=== PATIENT | female | born 1940 | race Caucasian/White ===

== ENCOUNTER → 2017-09-06 | Outpatient (REF) | payer MEDICARE, MEDICAID ==
[2017-05-16 10:23] VITALS: BMI 23.0
[~2017-09-06] MED LIST: ACET-2043 PO; ATOR-1 PO; ATOR40TA24 PO; ATOR40TA69 PO; CALC-515 PO; DOCU-202 PO; DONE10TA38 PO; DONE10TA45 PO; DONE10TA89 PO; DONE23TA PO; DONE5TAB29 PO; FLU45SYR25 IM ONLY; LEVO175T42 PO; LEVO25TA61 PO; LEVO50TA86 PO; LEVO88TA45 PO; LOR5/325 PO; MIRT-22 PO; NITR-105 PO; ONDA4TAB PO; OXYB10TA16 PO; OXYB5TAB80 PO; OXYB5TAB86 PO; PANT20TA27 PO; PANT40SU3 PO; PNEU0.5D3 IM; POLY17PO21 PO; SULF-198 PO; TOLT2CAP; VENL150C61 PO; VENL150T10 PO; VENL75TA12 PO
== END ==
LOC: ZZLCC 16:14
PROVIDERS: ATTEND Family Medicine
DX: E86.0 Dehydration (principal)
CPT/HCPCS: 82310; 82374; 82435; 82565; 82947; 84132; 84295; 84520; 85027

== ENCOUNTER → 2017-10-25 | Outpatient (REF) | payer MEDICARE, MEDICAID ==
[2017-05-16 10:23] VITALS: BMI 23.0
== END ==
LOC: ZZLCC 17:33
PROVIDERS: ATTEND Family Medicine
DX: E03.9 Hypothyroidism, unspecified (principal); E78.5 Hyperlipidemia, unspecified
CPT/HCPCS: 82465; 83718; 84443; 84478

== ENCOUNTER → 2018-04-24 | Outpatient (REF) | payer MEDICARE, MEDICAID ==
[2017-05-16 10:23] VITALS: BMI 23.0
[~2018-04-24] MED LIST changes: +ATOR10TA65 PO; -TOLT2CAP; +TOLT2CAP22; +VENL37.53 PO
[2018-04-24 16:38] LABS: PLATELET COUNT, AUTOMATED 234 K/uL (150-450)
== END ==
LOC: ZZLCC 16:26
PROVIDERS: ATTEND Family Medicine
DX: E03.9 Hypothyroidism, unspecified (principal)
CPT/HCPCS: 82040; 82247; 82310; 82374; 82435; 82565; 82947; 84075; 84132; 84155; 84295; 84443; 84450; 84460; 84520; 85025

== ENCOUNTER → 2018-11-19 | Outpatient (CLI) | payer MEDICARE, MEDICAID ==
[2017-05-16 10:23] VITALS: BMI 23.0
[~2018-11-19] MED LIST changes: +CHOL100052 PO; +DEXT30SU27 PO; +DICL100G39 TOP; +FLUT16SP19 NS; +MOM PO; +POLY17PO11 PO; -POLY17PO21 PO; +VENL75CA4 PO
== END ==
LOC: LAB 15:26
PROVIDERS: ATTEND Family Medicine
DX: E03.9 Hypothyroidism, unspecified (principal); I10 Essential (primary) hypertension
CPT/HCPCS: 82310; 82374; 82435; 82565; 82947; 84132; 84295; 84443; 84520

== ENCOUNTER → 2018-12-01 | Outpatient (REF) | payer MEDICARE, MEDICAID ==
[2017-05-16 10:23] VITALS: BMI 23.0
== END ==
LOC: ZZLCC 13:19
PROVIDERS: ATTEND Family Medicine
DX: Z02.9 Encounter for administrative examinations, unspecified (principal)
CPT/HCPCS: 81001

== ENCOUNTER → 2018-12-04 | Outpatient (REF) | payer MEDICARE, MEDICAID ==
[2017-05-16 10:23] VITALS: BMI 23.0
== END ==
LOC: ZZLCC 12:31
PROVIDERS: ATTEND Family Medicine
DX: R30.0 Dysuria (principal); R82.90 Unspecified abnormal findings in urine; B96.20 Unspecified Escherichia coli [E. coli] as the cause of diseases classified elsewhere
CPT/HCPCS: 81001; 87077; 87088; 87186

== ENCOUNTER 2019-01-29 14:19 | Emergency (ER) | payer MEDICARE, MEDICAID ==
[2017-05-16 10:23] VITALS: Wt 54.4 kg
--- NOTE | 2019-01-29 14:27 | ER Report ---
History and Physical Time Seen By MD: 14:27 Hx. of Stated Complaint: Unresponsive HPI/ROS CHIEF COMPLAINT: Unresponsive HISTORY OF PRESENT ILLNESS: 79 year old female presents to ED via EMS. She lives at [facility] and staff found her unresponsive. The last time someone was in her room and saw her awake was around 0800 this morning. EMS reported she was unresponsive to painful stimuli at the [facility], but her vitals and blood glucose were stable. Upon arrival to the ED patient was responsive to her name. Alert to person, but not place or time. Denies headache, chest pain, difficulty breathing. REVIEW OF SYSTEMS: HENT: No headache, no dizziness, no blurry vision. Respiratory: No cough, no dyspnea. Cardiovascular: No chest pain, no palpitations. Gastrointestinal: No vomiting, no abdominal pain. Musculoskeletal: No back pain. Skin: Does report right arm pain where EMS attempted to start an IV. Allergies: Coded Allergies: No Known Drug Allergies (Unverified , 05/12/17) Home Meds Active Scripts Polyethylene Glycol 3350 (POLYETHYLENE GLYCOL 3350) 17 Gm Powd.pack, 17 GM PO QDAY, #30 PACKET Prov:DANIELLE COLLINS MD 05/16/17 Acetaminophen (ACETAMINOPHEN) 500 Mg Tablet, 1000 MG PO Q8H PRN for PAIN, #30 TAB Prov:DANIELLE COLLINS MD 05/16/17 Levothyroxine Sodium (LEVOTHYROXINE SODIUM) 50 Mcg Tablet, 50 MCG PO QDAY, #90 TAB 3 Refills Prov:CHRISTIANO HERNANDEZ MD 02/22/17 Reported Medications Diclofenac Sodium 1% Gel (VOLTAREN 1% GEL) 100 Gm Gel..gram., 2 GM TOP QID, TUBE 09/06/18 Fluticasone Prop 50 Mcg Ns (FLONASE 50 MCG NS) 16 Gm [place].susp, 2 SPRAYS NS QDAY, BOT 06/21/18 Magnesium Hydroxide (MILK OF MAGNESIA) Unknown Strength Oral.susp, 30 ML PO PRN PRN for CONSTIPATION, BOTTLE 1200/15ml 06/21/18 Cholecalciferol (Vitamin D3) (VITAMIN D) 1,000 Unit Tablet, 1 TAB PO DAILY 06/21/18 Venlafaxine Hcl (VENLAFAXINE HCL ER) 75 Mg Cap.er.24h, 1 CAP PO QDAY 06/21/18 Past Medical/Surgical History Past history unable to be obtained due to altered mental status. Reviewed Nurses Notes: Yes Hx Smoking: No Smoking Status: Never Smoker Exposure to Second Hand Smoke?: Yes Hx Substance Use Disorder: No Hx Alcohol Use: No Constitutional Vital Sign - Last 24 Hours 01/29/19 01/29/19 01/29/19 01/29/19 14:29 14:30 15:00 16:00 Temp 98.5 Pulse 68 65 72 82 Resp 18 B/P (MAP) 125/73 124/77 (93) 126/91 (103) 115/90 (98) Pulse Ox 96 98 95 94 O2 Delivery Room Air 01/29/19 16:30 Pulse 83 B/P (MAP) 121/97 (105) Pulse Ox 94 Physical Exam General Appearance: The patient is alert, has no immediate need for airway protection and no current signs of toxicity. Eyes: Pupils equal and round no injection. Respiratory: Chest is non tender, lungs are clear to auscultation. Cardiac: regular rate and rhythm Gastrointestinal: Abdomen is soft and non tender, no masses, bowel sounds normal. Musculoskeletal: Neck: Neck is supple and non tender. Neuro: Alert to person. Not alert to place or time. Refused to smile to check CN 7. Pronator drift with weakness on right side. Right side weaker than the left in net fisher strength; weak in net fisher strength bilaterally. Lower extremity strength equal but weak bilaterally. Extremities have full range of motion and are non tender. Skin: No rashes or lesions. DIFFERENTIAL DIAGNOSIS: After history and physical exam differential diagnosis was considered for stroke, MT, pneumonia, UTI, altered mental status, substance abuse, medication side effects. Medical Decision Making Data Points Result Diagram: 01/29/19 1452 01/29/19 1452 Laboratory Hematology Test 01/29/19 14:51 01/29/19 14:52 Whole Blood Glucose 90 mg/DL (75-110) Red Blood Count 5.00 M/uL (4.17-5.56) Mean Corpuscular Volume 94.0 fL (80.0-96.0) Mean Corpuscular Hemoglobin 32.7 pg (26.0-33.0) Mean Corpuscular Hemoglobin Concent 34.8 g/dL (32.0-36.0) Red Cell Distribution Width 12.8 % (11.5-14.5) Mean Platelet Volume 9.4 fL (7.2-11.1) Neutrophils (%) (Auto) 34.1 % (39.4-72.5) Lymphocytes (%) (Auto) 55.3 % (17.6-49.6) Monocytes (%) (Auto) 8.1 % (4.1-12.4) Eosinophils (%) (Auto) 1.5 % (0.4-6.7) Basophils (%) (Auto) 1.0 % (0.3-1.4) Nucleated RBC Relative Count (auto) 0.1 /100WBC Neutrophils # (Auto) 2.1 K/uL (2.0-7.4) Lymphocytes # (Auto) 3.5 K/uL (1.3-3.6) Monocytes # (Auto) 0.5 K/uL (0.3-1.0) Eosinophils # (Auto) 0.1 K/uL (0.0-0.5) Basophils # (Auto) 0.1 K/uL (0.0-0.1) Nucleated RBC Absolute Count (auto) 0.01 K/uL Blood Gas Puncture Site Right radial Blood Gas Patient Temperature 98.5 DEGREES Arterial Blood pH 7.50 (7.35-7.45) Arterial Blood Partial Pressure CO2 < 25 mmHg (32-37) Arterial Blood Partial Pressure O2 52 mmHg (60-80) Arterial Blood HCO3 19 mmol/L (20-26) Arterial Blood Oxygen Saturation 90 % (92-100) Arterial Blood Base Excess -4.0 mmol/L Fran Test Acceptable Carboxyhemoglobin 0.0 % (< 5.0) Oxygen Liters/Minute 21 Sodium Level 141 mmol/L (137-145) Potassium Level 4.2 mmol/L (3.5-5.0) Chloride Level 105 mmol/L (98-107) Carbon Dioxide Level 25 mmol/L (22-31) Blood Urea Nitrogen 14 mg/dl (7-18) Creatinine 0.80 mg/dl (0.52-1.04) Glomerular Filtration Rate Calc > 60.0 Random Glucose 98 mg/dl (75-110) Lactate 1.8 mmol/L (0.7-2.1) Calcium Level 9.9 mg/dl (8.4-10.2) Total Bilirubin 0.5 mg/dl (0.2-1.3) Aspartate Amino Transf (AST/SGOT) 41 U/L (0-35) Alanine Aminotransferase (ALT/SGPT) 46 U/L (0-56) Alkaline Phosphatase 115 U/L (0-126) Ammonia < 9 UMOL/L (9-33) Troponin I < 0.012 ng/ml Total Protein 8.0 g/dl (6.3-8.2) Albumin 4.3 g/dl (3.5-5.0) Thyroid Stimulating Hormone (TSH) 6.52 uIU/ml (0.46-4.68) Chemistry Test 01/29/19 14:51 01/29/19 14:52 Whole Blood Glucose 90 mg/DL (75-110) White Blood Count 6.3 k/uL (4.5-11.0) Red Blood Count 5.00 M/uL (4.17-5.56) Hemoglobin 16.4 g/dL (12.0-16.0) Hematocrit 47.0 % (34.0-47.0) Mean Corpuscular Volume 94.0 fL (80.0-96.0) Mean Corpuscular Hemoglobin 32.7 pg (26.0-33.0) Mean Corpuscular Hemoglobin Concent 34.8 g/dL (32.0-36.0) Red Cell Distribution Width 12.8 % (11.5-14.5) Platelet Count 276 K/uL (150-450) Mean Platelet Volume 9.4 fL (7.2-11.1) Neutrophils (%) (Auto) 34.1 % (39.4-72.5) Lymphocytes (%) (Auto) 55.3 % (17.6-49.6) Monocytes (%) (Auto) 8.1 % (4.1-12.4) Eosinophils (%) (Auto) 1.5 % (0.4-6.7) Basophils (%) (Auto) 1.0 % (0.3-1.4) Nucleated RBC Relative Count (auto) 0.1 /100WBC Neutrophils # (Auto) 2.1 K/uL (2.0-7.4) Lymphocytes # (Auto) 3.5 K/uL (1.3-3.6) Monocytes # (Auto) 0.5 K/uL (0.3-1.0) Eosinophils # (Auto) 0.1 K/uL (0.0-0.5) Basophils # (Auto) 0.1 K/uL (0.0-0.1) Nucleated RBC Absolute Count (auto) 0.01 K/uL Blood Gas Puncture Site Right radial Blood Gas Patient Temperature 98.5 DEGREES Arterial Blood pH 7.50 (7.35-7.45) Arterial Blood Partial Pressure CO2 < 25 mmHg (32-37) Arterial Blood Partial Pressure O2 52 mmHg (60-80) Arterial Blood HCO3 19 mmol/L (20-26) Arterial Blood Oxygen Saturation 90 % (92-100) Arterial Blood Base Excess -4.0 mmol/L Fran Test Acceptable Carboxyhemoglobin 0.0 % (< 5.0) Oxygen Liters/Minute 21 Glomerular Filtration Rate Calc > 60.0 Lactate 1.8 mmol/L (0.7-2.1) Calcium Level 9.9 mg/dl (8.4-10.2) Total Bilirubin 0.5 mg/dl (0.2-1.3) Aspartate Amino Transf (AST/SGOT) 41 U/L (0-35) Alanine Aminotransferase (ALT/SGPT) 46 U/L (0-56) Alkaline Phosphatase 115 U/L (0-126) Ammonia < 9 UMOL/L (9-33) Troponin I < 0.012 ng/ml Total Protein 8.0 g/dl (6.3-8.2) Albumin 4.3 g/dl (3.5-5.0) Thyroid Stimulating Hormone (TSH) 6.52 uIU/ml (0.46-4.68) EKG/Imaging EKG Interpretation 12 lead EKG: Rhythm: normal sinus rhythm [place]: normal QRS: normal ST segments: normal Monitor Interpretation: Normal Sinus Rhythm Imaging Head CT: Indication:Altered metal status Comparison study: May 12, 2017 Technique: Multiple axial images were obtained through the brain without the use of intravenous contrast. One of the following dose optimization techniques was utilized in the performance of this exam: Automated exposure control; adjustment of the mA and/or kV according to the patient's size; or use of an iterative reconstructio n technique. Specific details can be referenced in the facility's radiology CT exam operational policy. The examination demonstrates no evidence of acute intracranial hemorrhage. There is no evidence of extra-axial collection or hydrocephalus. There are patchy areas of low density within the periventricular white matter. This is consistent with chronic ischemic change. There is mild atrophy present. These findings are unchanged. There is no evidence of disruption of the peripheral clifton-white junction. The bony structures are unremarkable. IMPRESSION: No significant abnormality identified. There is no change from the previous study. Chest x-ray: FINDINGS: Cardiomediastinal contours: The heart size is normal. Lungs and pleura: Linear density vertically oriented in the left lung base has the appearance of scar or atelectasis. It was not noted on the prior exam. There is no new infiltrate. There is mild hyperinflation of the lungs. 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 Abdomen: There are surgical clips in right upper quadrant. IMPRESSION: 1. New vertical linear density in the left lung base suggestive of atelectasis, but there is no associated infiltrate. 2. Hyperinflation of the lungs. 3. No congestive heart failure. 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 ED Course/Re-evaluation ED Course Upon arrival to the ED, patient was admitted to an exam room, hx and physical obtained, differentials considered. Patient presents to ED via EMS. She lives at [facility] and staff found her unresponsive. The last time someone was in her room and saw her awake was around 0800 this morning. EMS reported she was unresponsive to painful stimuli at the [facility], but her vitals and blood glucose were stable. Upon arrival to the ED patient was responsive to her name. Alert to person, but not place or time. Denies headache, chest pain, difficulty breathing, blurry vision, abdominal pain. On exam, heart rate and rhythm normal, lungs clear. Extremity strength weak in all extremities. IV started. CBC, CMP, UA, blood gases, ammonia, albumin, UA, urine drug screen, troponin, TSH, carboxyhemoglobin, EKG, chest x-ray, head CT obtained. 500 mL NS infused. No new acute findings on CT. Chest x-ray with new vertical linear density in the left lung base suggestive of atelectasis, but there is no associated infiltrate. Also has hyperinflation of the lungs, but no congestive heart failure. Labs unremarkable with lactate 1.8, troponin negative, ammonia <9, BUN and creatinine in normal range. on ABGs, pH 7.5, pCO2 <25, pO2 52, HCO3 19. Walking into the room after patient returned from CT, she is sitting up, awake, alert, smiling, and talking with her family. She reports she has no pain, no headache, no dizziness, no difficulty breathing, and no chest pain. Due to relatively normal labs and no finding on head CT, will send patient home to [facility]. Patient agrees with plan of care. Decision to Disposition Date: Jan 29, 2019 Decision to Disposition Time: 16:28 Depart Departure Latest Vital Signs Vital Signs Date Time Temp Pulse Resp B/P (MAP) Pulse Ox O2 Delivery O2 Flow Rate FiO2 01/29/19 16:30 83 121/97 (105) 94 01/29/19 14:29 98.5 18 Room Air Impression: Primary Impression: Altered awareness, transient Condition: Improved Disposition: HOME OR SELF-CARE Referrals: MARYA PLATT MD (PCP) Patient Instructions: Altered Mental Status (ED) Additional Instructions: Please drink plenty of water and get plenty of rest. Follow-up with your primary care provider or Monday. No change in medications. Return to the ER if you are having chest pain, difficulty breathing, return of symptoms, or any other concerns. CONRAD HENRY Jan 29, 2019 14:27
[2019-01-29] MEDS ORDERED: NS(*) 0.9% 500 ML BAG 500 ML IV ONE (14:34)
--- NOTE | 2019-01-29 14:49 | EKG ---
FACILITY: [facility] PATIENT NAME: DAKOTA DAILEY : [id number] MR: [id number] V: [id number] EXAM DATE: ORDERING PHYSICIAN: CONRAD HENRY TECHNOLOGIST: PRACHI Boogie Reason : WEAKNESS Blood Pressure : / mmHG Vent. Rate : 068 BPM Atrial Rate : 068 BPM P-R Int : 150 ms QRS Dur : 072 ms QT Int : 430 ms P-R-T Axes : 000 -15 038 degrees QTc Int : 457 ms Normal sinus rhythm Low voltage QRS Borderline ECG Confirmed by YORDAN BROOKE ([id number]) on 01/30/2019 6:28:39 AM Referred By: ER Confirmed By:YORDAN BROOKE
[2019-01-29 15:12] LABS: PLATELET COUNT, AUTOMATED 276 K/uL (150-450)
--- NOTE | 2019-01-29 15:50 | RADIOLOGY IMAGING REPORT ---
FACILITY: [facility] PATIENT NAME: Sarah Moffett : 1940 MR: [id number] V: [id number] EXAM DATE: ORDERING PHYSICIAN: CONRAD HENRY TECHNOLOGIST: Location: [facility] [place] Patient: Sarah Moffett : 1940 Visit/Account:[id number] Date of Sevice: 01/29/2019 CHEST SINGLE AP HISTORY: Change in mental status. Trauma to the head. COMPARISON: February 26, 2017. FINDINGS: Cardiomediastinal contours: The heart size is normal. Lungs and pleura: Linear density vertically oriented in the left lung base has the appearance of scar or atelectasis. It was not noted on the prior exam. There is no new infiltrate. There is mild hyp erinflation of the lungs. Bones/soft tissues: Diffuse osteopenia with deformity of the lateral aspect of the right clavicle lik aj representing an old lateral clavicular fracture with nonunion. Abdomen: There are surgical clips in right upper quadrant. IMPRESSION: 1. New vertical linear density in the left lung base suggestive of atelectasis, but there is no asso ciated infiltrate. 2. Hyperinflation of the lungs. 3. No congestive heart failure. 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 Report Dictated By: Magen Yeh MD at 01/29/2019 3:43 PM Report E-Signed By: Magen Yeh MD at 01/29/2019 3:46 PM WSN:[email or web address]
--- NOTE | 2019-01-29 15:54 | RADIOLOGY IMAGING REPORT ---
FACILITY: [facility] [place] PATIENT NAME: Sarah Moffett : 1940 MR: [id number] V: [id number] EXAM DATE: ORDERING PHYSICIAN: CONRAD HENRY TECHNOLOGIST: Location: [facility] Patient: Sarah Moffett : 1940 Visit/Account:[id number] Date of Sevice: 01/29/2019 Study: CT scan of the brain without intravenous contrast. Indication:Altered metal status Comparison study: May 12, 2017 Technique: Multiple axial images were obtained through the brain without the use of intravenous contr ast. One of the following dose optimization techniques was utilized in the performance of this exam: Autom ated exposure control; adjustment of the mA and/or kV according to the patient's size; or use of an i terative reconstruction technique. Specific details can be referenced in the facility's radiology C T exam operational policy. The examination demonstrates no evidence of acute intracranial hemorrhage. There is no evidence of ex tra-axial collection or hydrocephalus. There are patchy areas of low density within the periventricular white matter. This is consistent wit h chronic ischemic change. There is mild atrophy present. These findings are unchanged. There is no evidence of disruption of the peripheral clifton-white junction. The bony structures are unremarkable. IMPRESSION: No significant abnormality identified. There is no change from the previous study. Report Dictated By: Lele Sarah at 01/29/2019 3:47 PM Report E-Signed By: Lele Sarah at 01/29/2019 3:49 PM WSN:[id number]
[2019-01-29 16:30] VITALS: BP 121/97
== END 2019-01-29 17:30 | disposition home or self-care (01) ==
LOC: ER 14:29
DX: R40.4 Transient alteration of awareness (principal)
CPT/HCPCS: 36416; 70450; 71045; 82040; 82140; 82247; 82310; 82374; 82375; 82435; 82565; 82803; 82947; 82948; 83605; 84075; 84132; 84155; 84295; 84443; 84450; 84460; 84484; 84520; 85025; 87040; 93005; 99284

== ENCOUNTER → 2019-01-29 | Outpatient (CLI) | payer MEDICARE, MEDICAID ==
[2017-05-16 10:23] VITALS: BMI 23.0
== END ==
LOC: AMB 13:59
PROVIDERS: ATTEND Nurse Practitioner
DX: R41.82 Altered mental status, unspecified (principal)
CPT/HCPCS: A0425; A0427